=== PATIENT | male | born 1975 ===

== ENCOUNTER 2022-12-22 05:48 | Emergency (ER) | payer SELFPAY ==
--- NOTE | ~2022-12-22 | CT_ITS ---
EXAMINATION: CT ABDOMEN AND PELVIS WITHOUT CONTRAST CLINICAL INFORMATION: Left flank pain. COMPARISON: None available. TECHNIQUE: Multidetector volumetric imaging was performed from the superior aspect of the liver through the pubic symphysis. Sagittal and coronal reformatted images were obtained on the technologist's workstation. Lack of intravenous and oral contrast limits visceral evaluation. This CT examination was performed using dose optimization techniques as appropriate, variously including the following: *Automated exposure control *Adjustment of mA and/or kV according to patient size (this includes techniques or standardized protocols for targeted exams where dose is matched to indication/reason for exam; i.e. extremities or head) *Use of iterative reconstruction technique DLP: 514 mGy-cm FINDINGS: LUNG BASES: The visualized lung bases are unremarkable. LIVER, GALLBLADDER, AND BILIARY TREE: Tiny low-attenuation foci are seen in the right hepatic lobe without other significant abnormality. No gallbladder/biliary abnormality. PANCREAS: Unremarkable. SPLEEN: Unremarkable. ADRENAL GLANDS: Unremarkable. KIDNEYS AND URETERS: Minimal left hydroureteronephrosis and perinephric stranding. Punctate interpolar and left lower pole adrenal calculi are seen. Punctate right intrarenal calculi are seen as well. No right hydronephrosis. BLADDER: Dependent midline 0.2 cm intraluminal calculus. No focal mural abnormality. GASTROINTESTINAL TRACT: The stomach, small bowel and appendix are unremarkable. The colon and rectum are unremarkable. ABDOMINAL WALL: No significant hernia is appreciated. LYMPH NODES: No lymphadenopathy. VASCULAR: Unremarkable. PELVIC VISCERA: Unremarkable. OSSEOUS STRUCTURES: Unremarkable. CT/CT abdomen pelvis wo IV con IMPRESSION: 1. Minimal left hydroureteronephrosis and perinephric stranding. A 0.2 cm intraluminal calculus is seen within the urinary bladder likely recently passed.
--- NOTE | ~2022-12-22 | US_ITS ---
EXAMINATION: US RENAL, LEFT CLINICAL INFORMATION: Left flank pain. COMPARISON: None. TECHNIQUE: Grayscale and Doppler ultrasound images of the left kidney were obtained. FINDINGS: The left kidney is normal in size, contour, and echogenicity measuring up to 9.3 x 6.1 x 5.0 cm in greatest dimension. No renal parenchymal lesion. Normal cortical thickness. No renal stone. No hydronephrosis. US/US renal LT IMPRESSION: Unremarkable examination.
[2022-12-22 05:50] VITALS: BP 137/93; PULSE 90; RESP 18; TEMP 36.1; O2SAT 97; BMI 23.5
[2022-12-22 06:13] LABS: MANUAL DIFF FLAG NO
[2022-12-22 06:29] VITALS: BP 117/74; PULSE 87; RESP 16; TEMP 36.9; O2SAT 97
[2022-12-22 06:30] LABS: Basophils Percent Auto 0.3 % (0-2); Eosinophils Absolute Auto 0.1 X10*3/uL (0.0-0.4); Eosinophils Percent Auto 1.4 % (0-4); Hematocrit 42.7 % (42.0-52.0); Hemoglobin 14.3 g/dl (14.0-18.0); Imm Gran Abs Auto 0.02 X10*3/uL (0.00-0.03); Imm Gran Pct Auto 0.2 % (0.0-0.4); Lymphocytes Percent Auto 29.2 % (20-40); Mean Corpuscular HGB Conc 33.5 g/dl (31.0-36.0); Mean Corpuscular Hemoglobin 27.4 pg (27.0-33.0); Mean Corpuscular Volume 81.8 fL (80.0-98.0); Mean Platelet Volume 9.8 fL (9.4-12.4); Monocytes Absolute Auto 0.6 X10*3/uL (0.1-1.2); Monocytes Percent Auto 6.3 % (2-11); Neutrophils Absolute Auto 6.4 x10*3/uL (2.0-8.3); Neutrophils Percent Auto 62.6 % (45-73); Platelet Count 315 X10*3/uL (160-400); Red Blood Count 5.22 X10*6/uL (4.60-5.80); White Blood Count 10.2 X10*3/uL (4.8-10.8)
[2022-12-22 06:36] LABS: Anion Gap 15 (12-20); Blood Urea Nitrogen 20 mg/dL (9-16); Calcium 8.8 mg/dL (8.4-10.2); Carbon Dioxide 23 mmol/L (22-29); Chloride 108 mmol/L (96-108); Creatinine Clr Calc Pharmacy 74.5; Estimated Glomerular Filt Rate > 60; Glucose Random 127 mg/dL (60-115); Sodium 142 mmol/L (135-145)
--- NOTE | 2022-12-22 07:24 | ED_ITS ---
HPI - Male Genitourinary General Chief complaint: Urogenital-Male Stated complaint: Flank pain Time Seen by Provider: 12/22/22 06:37 Source: patient Mode of arrival: ambulatory Limitations: no limitations History of Present Illness HPI Narrative: Patient is a 47-year-old male with no reported past medical history presenting with severe sudden onset left flank pain approximately 3 hours prior to arrival. Patient states that he went to the bathroom to urinate but was unable to initiate a stream and this is when his pain began. He also reports nausea with 1 episode of vomiting. He states pain was initially 10/10, is currently 5/10 and he has been able to urinate without difficulty since. He denies any current abdominal pain. He denies any fevers. He denies any other urinary symptoms. He denies history of kidney stones but does report family history of kidney stones. He denies any radiation of his pain. He does endorse concern for possible STI. MD Complaint: other (left flank pain) Onset (ago): hour(s) Duration: improved Location: left flank Severity: severe Quality: sharp Relieving factors: none Exacerbating factors: none Associated symptoms: Reports other (Difficulty urinating prior to onset of symptoms.) Related Data Allergies Allergy/AdvReac Type Severity Reaction Status Date / Time No Known Allergies Allergy Verified 12/22/22 07:32 Review of Systems Review of Systems: As per HPI. Yes all other systems are reviewed and are negative [facility] Social History Social History Smoked in Last 30 Days: No Use of substances other than those prescribed or required for medical reasons: No Advance Directives: No Physical Exam Vital Signs: Vital Signs: Last Vital Signs Temp 98.3 F 12/22/22 08:42 Pulse 90 12/22/22 08:42 Resp 15 12/22/22 08:42 BP 120/79 12/22/22 08:42 Pulse Ox 97 12/22/22 08:42 O2 Del Method Room Air 12/22/22 08:42 BMI result Body Mass Index 23.5 Const: General: no acute distress, alert and awake Orientation/consciousness: patient oriented x3 HEENT: Head: Yes normocephalic and Yes atraumatic Mouth: oropharynx normal and moist mucous membranes Throat: Yes uvula midline Eyes: Pupils: Equal, round and reactive pupils present EOM: EOMs intact b ilaterally Neck: Neck: Yes normal visual inspection, Yes full ROM, Yes no lymphadenopathy, Yes no meningeal signs and Yes supple Resp: Effort & Inspection: normal respiratory effort Auscultation: clear to auscultation bilaterally Cardio: Rate: regular rate Rhythm: regular rhythm Heart sounds: S1 normal heart sound present and S2 normal heart sound present Peripheral pulses: Peripheral pulses 2+ throughout GI: Inspection: Yes normal to inspection and No distended Palpation (GI): Soft to palpation, nontender, no guarding, hepatosplenomegaly present and No Rebound tenderness present Auscultation: normoactive bowel sounds : General: Yes CVA tenderness on the left Back/Spine/Pelvis: Back: CVA tenderness Skin: General skin exam: elasticity normal and turgor normal Rashes: no rashes Neuro: General: patient oriented x3, gait normal and no meningeal signs Doctor [employer] nial nerves: Yes Equal, round and reactive pupils present Motor exam (neuro): 5/5 motor strength present throughout and Normal motor muscle tone present throughout Sensory Exam: Normal double simultaneous stimulation for sensation Medical Decision Making Medical Decision Making MDM Narrative: Patient is a 47-year-old male with no reported past medical history presenting with severe sudden onset left flank pain approximately 3 hours prior to arrival and difficulty urinating prior to onset of symptoms. On exam patient is nontoxic appearing, in no acute distress, awake, A+Ox3, abdomen soft and nontender without rebound tenderness or guarding, mild left CVA tenderness. Concern for UTI, pyelonephritis, nephrolithiasis. Unlikely AAA rupture, mesenteric ischemia, bowel obstruction. Labs unremarkable, urine positive for blood, no evidence of UTI. Will obtain renal US. Patient declining pain medication at this time. FINDINGS: The left kidney is normal in size, contour, and echogenicity measuring up to 9.3 x 6.1 x 5.0 cm in greatest dimension. No renal parenchymal lesion. Normal cortical thickness. No renal stone. No hydronephrosis. US/US renal LT IMPRESSION: Unremarkable examination. 08:40 Patient continues to have 5/10 left flank pain, continues to deny a need for pain medication. Will send urine for CT NG and obtain CT abdomen pelvis. 9:29 FINDINGS: LUNG BASES: The visualized lung bases are unremarkable.? LIVER, GALLBLADDER, AND BILIARY TREE: Tiny low-attenuation foci are seen in the right hepatic lobe without other significant abnormality. No gallbladder/biliary abnormality. PANCREAS: Unremarkable.? SPLEEN: Unremarkable.? ADRENAL GLANDS: Unremarkable.? KIDNEYS AND URETERS: Minimal left hydroureteronephrosis and perinephric stranding. Punctate interpolar and left lower pole adrenal calculi are seen. Punctate right intrarenal calculi are seen as well. No right hydronephrosis. BLADDER: Dependent midline 0.2 cm intraluminal calculus. No focal mural abnormality. GASTROINTESTINAL TRACT: The stomach, small bowel and appendix are unremarkable. The colon and rectum are unremarkable.? ABDOMINAL WALL: No significant hernia is appreciated.? LYMPH NODES: No lymphadenopathy. VASCULAR: Unremarkable. PELVIC VISCERA: Unremarkable.? OSSEOUS STRUCTURES: Unremarkable.? CT/CT abdomen pelvis wo IV con IMPRESSION: 1. Minimal left hydroureteronephrosis and perinephric stranding. A 0.2 cm intraluminal calculus is seen within the urinary bladder likely recently passed. ? Feel patient's discomfort likely related to calculus visible on CT and subsequent ureteral spasms. Feel patient is stable to discharge home at this time. Recommend ibuprofen, follow-up with urology, return precautions discussed at bedside. Will contact patient with any positive results of CTNG. Differential Diagnosis Differential Diagnoses: The differential diagnosis associated with the presentation includes As above. Admission/Observation Consideration of admission/observation: Escalation of care including admission/observation considered Lab Data MDM Lab Attestation statement: I reviewed the patient's lab results. 12/22/22 06:09 12/22/22 06:09 Labs: Lab Results 12/22/22 12/22/22 12/22/22 Range/Units 06:09 06:09 07:28 WBC 10.2 (4.8-10.8) X10*3/uL RBC 5.22 (4.60-5.80) X10*6/uL Hgb 14.3 (14.0-18.0) g/dl Hct 42.7 (42.0-52.0) % MCV 81.8 (80.0-98.0) fL MCH 27.4 (27.0-33.0) pg MCHC 33.5 (31.0-36.0) g/dl RDW 12.0 (11.0-16.0) % Plt Count 315 (160-400) X10*3/uL MPV 9.8 (9.4-12.4) fL Immature Gran % (Auto) 0.2 (0.0-0.4) % Neut % (Auto) 62.6 (45-73) % Lymph % (Auto) 29.2 (20-40) % [place] % (Auto) 6.3 (2-11) % Eos % (Auto) 1.4 (0-4) % Baso % (Auto) 0.3 (0-2) % Lymph # (Auto) 3.0 (1.2-4.9) X10*3/uL [place] # (Auto) 0.6 (0.1-1.2) X10*3/uL Eos # (Auto) 0.1 (0.0-0.4) X10*3/uL Baso # (Auto) 0.0 (0.0-0.2) X10*3/uL Abs Immat Gran (auto) 0.02 (0.00-0.03) X10*3/uL Absolute Neuts (auto) 6.4 (2.0-8.3) x10*3/uL Absolute Nucleated RBC 0.000 (0.0-0.012) X10*3/uL Nucleated RBC % (auto) 0.0 (0.0-0.2) /100WBC Sodium 142 (135-145) mmol/L Potassium 4.0 (3.3-5.1) mmol/L Chloride 108 (96-108) mmol/L Carbon Dioxide 23 (22-29) mmol/L Anion Gap 15 (12-20) BUN 20 H (9-16) mg/dL Creatinine 1.17 (0.5-1.4) mg/dL Estim Creat Clear Calc 74.5 Estimated GFR > 60 Random Glucose 127 H (60-115) mg/dL Calcium 8.8 (8.4-10.2) mg/dL Urine Color Yellow Urine Appearance Clear Urine pH 7.0 (5.0-9.0) Ur Specific [place] 1.015 (1.005-1.025) Urine Protein Negative (Neg-Trace) mg/dL Urine Glucose (UA) Negative (Negative) mg/dL Urine Ketones Negative (Negative) mg/dL Urine Blood Large (3+) H (Negative) Urine Nitrite Negative (Negative) Ur Leukocyte Esterase Negative (Negative) Urine RBC >20 H (0-2) /HPF Urine WBC 0-5 (0-5) /HPF Ur Squamous Epith Cells 0-2 (0-2) /HPF Urine Bacteria None Seen (None Seen) Hyaline Casts 0-2 (0-2) /LPF Independent Interpretation I performed an independent interpretation of an: Ultrasound and CT Scan Interpretation: I independently reviewed the ultrasound and CT and agree with the radiologist's interpretation. Radiology Impression Discussion of test interpretation with radiology: I have reviewed the radiologist's reading. Radiologist Impression: FINDINGS: The left kidney is normal in size, contour, and echogenicity measuring up to 9.3 x 6.1 x 5.0 cm in greatest dimension. No renal parenchymal lesion. Normal cortical thickness. No renal stone. No hydronephrosis. US/US renal LT IMPRESSION: Unremarkable examination. FINDINGS: LUNG BASES: The visualized lung bases are unremarkable.? LIVER, GALLBLADDER, AND BILIARY TREE: Tiny low-attenuation foci are seen in the right hepatic lobe without other significant abnormality. No gallbladder/biliary abnormality. PANCREAS: Unremarkable.? SPLEEN: Unremarkable.? ADRENAL GLANDS: Unremarkable.? KIDNEYS AND URETERS: Minimal left hydroureteronephrosis and perinephric stranding. Punctate interpolar and left lower pole adrenal calculi are seen. Punctate right intrarenal calculi are seen as well. No right hydronephrosis. BLADDER: Dependent midline 0.2 cm intraluminal calculus. No focal mural abnormality. GASTROINTESTINAL TRACT: The stomach, small bowel and appendix are unremarkable. The colon and rectum are unremarkable.? ABDOMINAL WALL: No significant hernia is appreciated.? LYMPH NODES: No lymphadenopathy. VASCULAR: Unremarkable. PELVIC VISCERA: Unremarkable.? OSSEOUS STRUCTURES: Unremarkable.? CT/CT abdomen pelvis wo IV con IMPRESSION: 1. Minimal left hydroureteronephrosis and perinephric stranding. A 0.2 cm intraluminal calculus is seen within the urinary bladder likely recently passed. ? External Record Review External record reviewed: Inpatient record, Office record and Outpatient record Prescription Management I considered prescription management with: Pain Medication Discharge Plan Discharge Clinical Impression: Left nephrolithiasis Patient Disposition: Home, Self-Care Instructions: Kidney Stones (ED), Renal Colic (ED), How to Strain Your Urine (ED) Additional Instructions: You were evaluated in the emergency department for left flank pain and your CT scan showed evidence of a small kidney stone which has since moved to your bladder. Based on its size, the stone should pass on its own without further intervention. You can use 600 mg ibuprofen every 6 hours as needed for discomfort. Be sure to drink plenty of fluids. Please follow-up with the urologist and your primary care provider. Return to the emergency department if you experience difficulty urinating, inability to urinate, fevers 100.4? F or greater, worsening or uncontrolled pain, vomiting, flank pain, or any other conc erning symptoms. Referrals: [facility] [Provider Group]
--- NOTE | 2022-12-22 07:30 | PC.NURSE ---
pt alert and oriented, skin appropriate for ethnicity, respirations even and unlabored, pt reports left sided abd/flank pain that started this morning and vomited but states feeling much better at this time, pain at 5/10 and denies nausea. abd soft and non-tender with bowel sounds in all 4 quadrants, pt states he does not need any pain meds at this time
[2022-12-22 07:36] LABS: Appearance Urine Clear; Color Urine Yellow; Glucose Urine UA Negative (Negative); Leukocyte Esterase Urine Negative (Negative); Nitrite Urine Negative (Negative); Specific Gravity - Urine 1.015 (1.005-1.025); UMIC TRIGGER UACC YES; Urine Blood Large (3+) (Negative); Urine Ketones Negative (Negative); Urine Protein Negative (Neg-Trace)
[2022-12-22 08:31] LABS: Bacteria Urine None Seen (None Seen); Hyaline Casts Urine 0-2 /LPF (0-2); RBC Urine >20 /HPF (0-2); Squamous Epithelial Cell Urine 0-2 /HPF (0-2); WBC Urine 0-5 /HPF (0-5)
[2022-12-22 08:42] VITALS: BP 120/79; PULSE 90; RESP 15; TEMP 36.8; O2SAT 97
[2022-12-22 10:20] LABS: CT PCR NOT DETECTED (Not Detect.); NG PCR NOT DETECTED (Not Detect.)
== END 2022-12-22 09:58 | disposition home or self-care (01) ==
PROVIDERS: Registered Nurse Emergency; Emergency Provider Emergency Medicine Emergency Medical Services
DX: N13.2 Hydronephrosis with renal and ureteral calculous obstruction (principal)
CPT/HCPCS: 0353U; 36415; 51798; 74176; 76775; 80048; 81001; 81003; 85025; 99284